=== PATIENT | male | born 1975 | race Hispanic/Latino ===

== ENCOUNTER 2019-04-20 08:48 | Emergency (ER) | payer SELFPAY ==
--- OUTSIDE RECORDS SUMMARY | 2019-04-20 08:50 | XMS REPORT ---
:1975 [facility] Address [address] [place] [address] [address] [address] Care Team Providers Name Role Phone NONE Primary Care Provider Unavailable Problems This patient has no known problems. Allergies, Adverse Reactions, Alerts This patient has no known allergies or adverse reactions. Medications This patient has no known medications. Encounters Start End Encounter Admission Attending Care Care Encounter Date/Time Date/Time Type Type Clinicians Facility Department ID 2017-01-24 2017-01-24 Emergency E [facility] [id number] 11:42:00 11:42:00
--- NOTE | 2019-04-20 10:11 | RAD REPORT ---
EXAM DESCRIPTION: Joanie Villatoro (2 Views)04/20/2019 10:01 am CLINICAL HISTORY: Cough COMPARISON: 2017 FINDINGS: The lungs appear clear of acute infiltrate. The heart is normal size IMPRESSION: No acute abnormalities displayed
--- NOTE | 2019-04-20 10:42 | ER ---
Nurse's Notes [facility] Name: David Lopez Age: 43 yrs Sex: Male : 1975 Arrival Date: 04/20/2019 Time: 08:50 Bed 15 Private MD: Diagnosis: Acute upper respiratory infection, unspecified Presentation: 04/20 09:12 Presenting complaint: Patient states: throat pain, productive cough, nasal congestion, iw body aches X 1 week, this morning he could hardly get himself out of bed, no fever. Transition of care: patient was not received from another setting of care. Onset of symptoms was April 13, 2019. Risk Assessment: Do you want to hurt yourself or someone else? Patient reports no desire to harm self or others. Initial Sepsis Screen: Does the patient meet any 2 criteria? No. Patient's initial sepsis screen is negative. Does the patient have a suspected source of infection? No. Patient's initial sepsis screen is negative. Care prior to arrival: None. 09:12 Method Of Arrival: Ambulatory iw 09:12 Acuity: СВЕТЛАНА 4 iw Historical: - Allergies: 09:13 No Known Allergies; iw - Home Meds: 09:13 None [Active]; iw - PMHx: 09:13 Diverticulitis; iw - PSHx: 09:13 Bowel resection; iw - Immunization history:: Adult Immunizations not up to date. - Coronavirus screen:: The patient has NOT traveled to [place], [place], or [place] in the past 14 days. Proceed with normal triage process as indicated. - Social history:: Smoking status: Patient reports the use of cigarette tobacco products, smokes one-half pack cigarettes per day. - Ebola Screening: : Patient negative for fever greater than or equal to 101.5 degrees Fahrenheit, and additional compatible Ebola Virus Disease symptoms Patient denies exposure to infectious person Patient denies travel to an Ebola-affected area in the 21 days before illness onset No symptoms or risks identified at this time. Screenin:36 Abuse screen: Denies threats or abuse. Denies injuries from another. Nutritional ph screening: No deficits noted. Tuberculosis screening: No symptoms or risk factors identified. Fall Risk None identified. Assessment: 09:33 General: Appears in no apparent distress. comfortable, well groomed, Behavior is calm, ph cooperative, appropriate for age. Pain: Complains of pain in when swallowing. Neuro: Level of Consciousness is awake, alert, obeys commands, Oriented to person, place, time, situation. Cardiovascular: Capillary refill < 3 seconds in bilateral fingers Patient's skin is warm and dry. Respiratory: Reports cough that is productive, Airway is patent Respiratory effort is even, unlabored, Respiratory pattern is regular, symmetrical. GI: No signs and/or symptoms were reported involving the gastrointestinal system. EENT: Reports pain when swallowing. Derm: Skin is intact, is healthy with good turgor, Skin is pink, warm \T\ dry. Musculoskeletal: Circulation, motion, and sensation intact. Range of motion: intact in all extremities. 11:01 Reassessment: Patient appears in no apparent distress at this time. Patient and/or ph family updated on plan of care and expected duration. Pain level reassessed. Patient is alert, oriented x 3, equal unlabored respirations, skin warm/dry/pink. Vital Signs: 09:13 BP 144 / 96; Pulse 81; Resp 18; Temp 97.9; Pulse Ox 98% on R/A; Height 6 ft. 1 in. iw (185.42 cm); Pain 0/10; 11:03 BP 131 / 86; Pulse 78; Resp 18; Temp 97.8; Pulse Ox 99% on R/A; ph ED Course: 08:50 Patient arrived in ED. as 09:13 Triage completed. iw 09:13 Arm band placed on. iw 09:15 Samuel Valle NP is PHCP. pm1 09:15 Adria Gonzales MD is Attending Physician. pm1 09:27 Naomi Lemus, TAYLER is Primary Nurse. ph 09:30 Flu and/or RSV swab sent to lab. Strep swab sent to lab. jl7 09:36 Patient has correct armband on for positive identification. Bed in low position. Call ph light in reach. Side rails up X 1. Pulse ox on. NIBP on. Door closed. Noise minimized. Warm blanket given. 11:02 No provider procedures requiring assistance completed. Patient did not have IV access ph during this emergency room visit. Administered Medications: No medications were administered Outcome: 10:41 Discharge ordered by MD. pm1 11:02 Discharged to home ambulatory, with significant other. ph 11:02 Condition: good 11:02 Discharge instructions given to patient, Instructed on discharge instructions, follow up and referral plans. medication usage, Demonstrated understanding of instructions, follow-up care, medications, Prescriptions given X 1. 11:03 Patient left the ED. ph Signatures: Mitzi Rogers Irene, RN RN Naomi Lemus RN RN ph Samuel Valle, [employer] FOLLOW UP MANAGER pm1 Rea Bryan RN RN jl7
--- NOTE | 2019-04-20 10:42 | EDPHYS ---
Physician Documentation [facility] Name: David Lopez Age: 43 yrs Sex: Male : 1975 Arrival Date: 04/20/2019 Time: 08:50 Bed 15 Private MD: ED Physician Adria Gonzales HPI: 04/20 09:54 This 43 yrs old Male presents to ER via Ambulatory with complaints of Flu pm1 Symptoms. 09:54 The patient or guardian reports Productive cough, sore throat nasal congestion, body pm1 aches. Believes that he might have the flu. Onset: The symptoms/episode began/occurred 1 week(s) ago. Severity of symptoms: in the emergency department the symptoms are actually worse. Modifying factors: The symptoms are alleviated by nothing, the symptoms are aggravated by nothing. Associated signs and symptoms: Pertinent positives: rhinorrhea, sore throat, Pertinent negatives: chest pain, diarrhea, ear ache, fever, vomiting. It is unknown whether or not the patient has recently seen a physician. Historical: - Allergies: 09:13 No Known Allergies; iw - Home Meds: 09:13 None [Active]; iw - PMHx: 09:13 Diverticulitis; iw - PSHx: 09:13 Bowel resection; iw - Immunization history:: Adult Immunizations not up to date. - Coronavirus screen:: The patient has NOT traveled to [place], [place], or [place] in the past 14 days. Proceed with normal triage process as indicated. - Social history:: Smoking status: Patient reports the use of cigarette tobacco products, smokes one-half pack cigarettes per day. - Ebola Screening: : Patient negative for fever greater than or equal to 101.5 degrees Fahrenheit, and additional compatible Ebola Virus Disease symptoms Patient denies exposure to infectious person Patient denies travel to an Ebola-affected area in the 21 days before illness onset No symptoms or risks identified at this time. ROS: 09:54 Eyes: Negative for injury, pain, redness, and discharge. pm1 09:54 Neck: Negative for injury, pain, and swelling, Cardiovascular: Negative for chest pain, palpitations, and edema. 09:54 Abdomen/GI: Negative for abdominal pain, nausea, vomiting, diarrhea, and constipation, Back: Negative for injury and pain, MS/Extremity: Negative for injury and deformity, Skin: Negative for injury, rash, and discoloration, Neuro: Negative for headache, weakness, numbness, tingling, and seizure. 09:54 Constitutional: Positive for body aches, Negative for fever, poor PO intake. 09:54 ENT: Positive for sore throat, Negative for ear pain. 09:54 Respiratory: Positive for cough, Negative for shortness of breath, wheezing. Exam: 09:54 Constitutional: This is a well developed, well nourished patient who is awake, alert, pm1 and in no acute distress. Head/Face: Normocephalic, atraumatic. Eyes: Pupils equal round and reactive to light, extra-ocular motions intact. Lids and lashes normal. Conjunctiva and sclera are non-icteric and not injected. Cornea within normal limits. Periorbital areas with no swelling, redness, or edema. ENT: Nares patent. No nasal discharge, no septal abnormalities noted. Tympanic membranes are normal and external auditory canals are clear. Oropharynx with no redness, swelling, or masses, exudates, or evidence of obstruction, uvula midline. Mucous membranes moist. Neck: Trachea midline, no thyromegaly or masses palpated, and no cervical lymphadenopathy. Supple, full range of motion without nuchal rigidity, or vertebral point tenderness. No Meningismus. Chest/axilla: Normal chest wall appearance and motion. Nontender with no deformity. No lesions are appreciated. Cardiovascular: Regular rate and rhythm with a normal S1 and S2. No gallops, murmurs, or rubs. Normal PMI, no JVD. No pulse deficits. Respiratory: Lungs have equal breath sounds bilaterally, clear to auscultation and percussion. No rales, rhonchi or wheezes noted. No increased work of breathing, no retractions or nasal flaring. Abdomen/GI: Soft, non-tender, with normal bowel sounds. No distension or tympany. No guarding or rebound. No evidence of tenderness throughout. Back: No spinal tenderness. No costovertebral tenderness. Full range of motion. Skin: Warm, dry with normal turgor. Normal color with no rashes, no lesions, and no evidence of cellulitis. MS/ Extremity: Pulses equal, no cyanosis. Neurovascular intact. Full, normal range of motion. 09:54 Neuro: Orientation: is normal, Motor: is normal, moves all fours, Sensation: is normal, no obvious gross deficits, Gait: is steady, at a normal pace, without difficulty. Vital Signs: 09:13 BP 144 / 96; Pulse 81; Resp 18; Temp 97.9; Pulse Ox 98% on R/A; Height 6 ft. 1 in. iw (185.42 cm); Pain 0/10; 11:03 BP 131 / 86; Pulse 78; Resp 18; Temp 97.8; Pulse Ox 99% on R/A; ph MDM: 09:[address] [facility] 10:40 Data reviewed: vital signs. Data interpreted: Pulse oximetry: on room air is 98 %. pm1 Interpretation: normal. Counseling: I had a detailed discussion with the patient and/or guardian regarding: the historical points, exam findings, and any diagnostic results supporting the discharge/admit diagnosis, lab results, radiology results, the need for outpatient follow up, to return to the emergency department if symptoms worsen or persist or if there are any questions or concerns that arise at home. 10:45 ED course: Patient does not want codeine due to work. Will prescribe Tessalon perls. pm1 04/20 09:18 Order name: Flu; Complete Time: 10:11 ph 04/20 09:18 Order name: Strep; Complete Time: 10:11 ph 04/20 09:27 Order name: Chest Pa And Lat (2 Views) XRAY pm1 04/20 10:25 Order name: RAD; Complete Time: 10:39 EDMS 04/20 10:27 Order name: Throat Culture EDMS Administered Medications: No medications were administered Disposition: 17:03 Co-signature as Attending Physician, Adria Gonzales MD I agree with the assessment and [facility] plan of care. Disposition: 04/20/19 10:41 Discharged to Home. Impression: Acute upper respiratory infection, unspecified. - Condition is Stable. - Discharge Instructions: Antibiotic Resistance, Upper Respiratory Infection, Adult. - Prescriptions for Tessalon Perles 100 mg Oral Capsule - take 1 capsule by ORAL route every 8 hours As needed; 15 capsule. - Work release form, Medication Reconciliation Form, Thank You Letter, Antibiotic Education, Prescription Opioid Use form. - Follow up: Emergency Department; When: As needed; Reason: Worsening of condition. Follow up: Private Physician; When: 2 - 3 days; Reason: Recheck today's complaints, Continuance of care, Re-evaluation by your physician. - Problem is new. - Symptoms have improved. Signatures: Dispatcher [employer] EDAdria Garcia MD MD cha Williams, Irene, RN RN iw Hall, Patricia, RN RN Samuel Batista, [employer] COMMUNITY RECREATION PROGRAMMER pm1 Corrections: (The following items were deleted from the chart) 11:03 10:41 04/20/2019 10:41 Discharged to Home. Impression: Acute upper respiratory ph infection, unspecified. Condition is Stable. Forms are Medication Reconciliation Form, Thank You Letter, Antibiotic Education, Prescription Opioid Use. Follow up: Emergency Department; When: As needed; Reason: Worsening of condition. Follow up: Private Physician; When: 2 - 3 days; Reason: Recheck today's complaints, Continuance of care, Re-evaluation by your physician. Problem is new. Symptoms have improved. pm1
== END 2019-04-20 11:03 | disposition home or self-care (01) ==
LOC: ER 08:48
DX: J06.9 Acute upper respiratory infection, unspecified (principal); F17.210 Nicotine dependence, cigarettes, uncomplicated
CPT/HCPCS: 71046; 87070; 87081; 87804; 99283

== ENCOUNTER 2020-12-09 14:01 | Emergency (ER) | payer SELFPAY ==
--- NOTE | 2020-12-09 16:34 | EDPHYS ---
Physician Documentation [facility] Name: David Lopez Age: 45 yrs Sex: Male : 1975 Arrival Date: 12/09/2020 Time: 14:02 Bed 12 Private MD: Adria Arthur HPI: 12/09 14:50 This 45 yrs old Male presents to ER via Ambulatory with complaints of r/o pm1 covid. 14:50 Associated signs and symptoms: The patient has no apparent associated signs or pm1 symptoms. The patient has not recently seen a physician. Patient presenting to the ER with complaints of retesting for Covid. Patient received vaccination on 10/23/2020. Patient was randomly tested on 10/24/2020 at his work and a test result was positive. Patient without any symptoms of Covid at that time or now. Patient took a test at [facility] and at home today and attempt to return to work however his job is not excepting it. Patient was instructed to be seen by a doctor for his Covid test or he will be terminated. Therefore patient came to the ER for a Covid test. Historical: - Allergies: 14:19 No Known Allergies; aa5 - PMHx: 14:19 Diverticulitis; aa5 - Immunization history:: Client reports receiving the 1st dose of the Covid vaccine. - Social history:: Smoking status: Patient reports the use of cigarette tobacco products. ROS: 14:50 Constitutional: Negative for fever, chills, and weight loss, Eyes: Negative for injury, pm1 pain, redness, and discharge, ENT: Negative for injury, pain, and discharge, Cardiovascular: Negative for chest pain, palpitations, and edema, Respiratory: Negative for shortness of breath, cough, wheezing, and pleuritic chest pain, Abdomen/GI: Negative for abdominal pain, nausea, vomiting, diarrhea, and constipation, MS/Extremity: Negative for injury and deformity, Skin: Negative for injury, rash, and discoloration, Neuro: Negative for headache, weakness, numbness, tingling, and seizure. 14:50 All other systems are negative. Exam: 14:50 Constitutional: This is a well developed, well nourished patient who is awake, alert, pm1 and in no acute distress. Head/Face: Normocephalic, atraumatic. 14:50 Skin: Warm, dry with normal turgor. Normal color with no rashes, no lesions, and no evidence of cellulitis. MS/ Extremity: Pulses equal, no cyanosis. Neurovascular intact. Full, normal range of motion. 14:50 Cardiovascular: Exam negative for acute changes, Rate: normal, Rhythm: regular, Pulses: no pulse deficits are appreciated, Heart sounds: normal. 14:50 Respiratory: Exam negative for acute changes, respiratory distress, shortness of breath. 14:50 Abdomen/GI: Inspection: obese Palpation: abdomen is soft and non-tender, in all quadrants. 14:50 Neuro: Exam negative for acute changes, Orientation: is normal, Mentation: is normal, Motor: is normal, moves all fours. Vital Signs: 14:17 BP 154 / 105; Pulse 105; Resp 18 S; Temp 98.7(TE); Pulse Ox 97% on R/A; aa5 16:40 BP 150 / 96; Pulse 90; Resp 16 S; Pulse Ox 97% on R/A; aa5 MDM: 14:27 Patient medically screened. [facility] 14:50 Data reviewed: vital signs. Data interpreted: Pulse oximetry: on room air is 97 %. pm1 Interpretation: normal. 16:33 Counseling: I had a detailed discussion with the patient and/or guardian regarding: the pm1 historical points, exam findings, and any diagnostic results supporting the discharge/admit diagnosis, lab results, the need for outpatient follow up, to return to the emergency department if symptoms worsen or persist or if there are any questions or concerns that arise at home. 12/09 14:42 Order name: COVID-19 : Document "Date of Symptom Onset" if Symptomatic. pm1 12/09 16:32 Order name: SARS-COV-2 RT PCR; Complete Time: 16:32 EDMS Administered Medications: No medications were administered Disposition: 12/10 10:01 Co-signature as Attending Physician, Adria Gonzales MD I agree with the assessment and [facility] plan of care. Disposition Summary: 12/09/20 16:34 Discharge Ordered Location: Home pm1 Problem: new pm1 Symptoms: have improved pm1 Condition: Stable pm1 Diagnosis - Encounter for screening, unspecified pm1 Followup: pm1 - With: Emergency Department - When: As needed - Reason: Worsening of condition Followup: pm1 - With: Private Physician - When: 2 - 3 days - Reason: Recheck today's complaints, Continuance of care, Re-evaluation by your physician Discharge Instructions: - Discharge Summary Sheet pm1 - COVID-19 pm1 - COVID-19 Frequently Asked Questions pm1 Forms: - Medication Reconciliation Form pm1 - Thank You Letter pm1 - Antibiotic Education pm1 - Prescription Opioid Use pm1 Signatures: Dispatcher [employer] EDMT Adria Gonzales MD MD cha Calderon, Audri RN RN aa5 Samuel Valle, [employer] CAMPUS SUPERVISOR pm1 Corrections: (The following items were deleted from the chart) 12/09 15:16 14:43 CORONAVIRUS ordered. [facility] EDMT 16:43 16:34 Coronavirus infection, unspecified pm1 pm1
--- NOTE | 2020-12-09 16:34 | ER ---
Nurse's Notes [facility] Name: David Lopez Age: 45 yrs Sex: Male : 1975 Arrival Date: 12/09/2020 Time: 14:02 Bed 12 Private MD: Diagnosis: Encounter for screening, unspecified Presentation: 12/09 14:17 Chief complaint: Patient states: "I had the covid vaccine on the 3rd and on the 4th I aa5 tested positive for covid but now my work wants a negative test to go back to work". Pt denies symptoms. Coronavirus screen: At this time, the client does not indicate any symptoms associated with coronavirus-19. Ebola Screen: Patient negative for fever greater than or equal to 101.5 degrees Fahrenheit, and additional compatible Ebola Virus Disease symptoms. Initial Sepsis Screen: Does the patient meet any 2 criteria? No. Patient's initial sepsis screen is negative. Does the patient have a suspected source of infection? No. Patient's initial sepsis screen is negative. Risk Assessment: Do you want to hurt yourself or someone else? Patient reports no desire to harm self or others. Onset of symptoms was November 2020. 14:17 Method Of Arrival: Ambulatory aa5 14:17 Acuity: СВЕТЛАНА 4 aa5 Historical: - Allergies: 14:19 No Known Allergies; aa5 - PMHx: 14:19 Diverticulitis; aa5 - Immunization history:: Client reports receiving the 1st dose of the Covid vaccine. - Social history:: Smoking status: Patient reports the use of cigarette tobacco products. Assessment: 15:37 Reassessment: Patient is alert, oriented x 3, equal unlabored respirations, skin aa5 warm/dry/pink. Estimated time for COVID result is 39 minutes per lab. . 16:52 Reassessment: Patient is alert, oriented x 3, equal unlabored respirations, skin aa5 warm/dry/pink. Vital Signs: 14:17 BP 154 / 105; Pulse 105; Resp 18 S; Temp 98.7(TE); Pulse Ox 97% on R/A; aa5 16:40 BP 150 / 96; Pulse 90; Resp 16 S; Pulse Ox 97% on R/A; aa5 ED Course: 14:02 Patient arrived in ED. as 14:17 Arm band placed on. aa5 14:19 Triage completed. aa5 14:22 Samuel Valle NP is PHCP. pm1 14:22 Adria Gonzales MD is Attending Physician. pm1 16:52 No provider procedures requiring assistance completed. Patient did not have IV access aa5 during this emergency room visit. Administered Medications: No medications were administered Outcome: 16:34 Discharge ordered by MD. pm1 16:52 Discharged to home ambulatory. aa5 16:52 Condition: stable 16:52 Discharge instructions given to patient, Instructed on discharge instructions, follow up and referral plans. Demonstrated understanding of instructions, follow-up care. 16:54 Patient left the ED. 3 Signatures: Mitzi Rogers Audri, RN RN aa5 Samuel Valle NP CALL CENTER ASSOCIATE pm1 Mini Alcantara 3
[2020-12-09 16:58] VITALS: BP 154/105; TEMP 98.7; O2SAT 97
== END 2020-12-09 16:54 | disposition home or self-care (01) ==
LOC: ER 14:01
DX: U07.1 COVID-19 (principal)
CPT/HCPCS: 99281; U0003